=== PATIENT | female | born 1965 | race Caucasian/White ===

== ENCOUNTER 2021-08-21 12:19 | Emergency (ER) | payer OTHER ==
[~2021-08-21] VITALS: Ht 165.1 cm; Wt 98.0 kg
[~2021-08-21 12:19] MED LIST: DOCU-109 PO; FLUT16SP NS; IBUP-1060 PO; LORA10TA3 PO; OMEP20CA16 PO; OXYC1TAB15 PO
[2021-08-21 15:05] VITALS: BP 144/89
[2021-08-21] MEDS ORDERED: VANCOMYCIN PER PHARMACY MC ONE (15:15)
[2021-08-21] MEDS ORDERED: VANCOMYCIN 2 GM in IV NORMAL SALINE 500ML BAG 500 ML IV ONE (15:15)
[2021-08-21] MEDS ORDERED: PIPERACILLIN/TAZOBACTAM 4.5 GM in IV NORMAL SALINE 100ML 100 ML IV ONE (15:15)
[2021-08-21] MEDS ORDERED: MORPHINE SULFATE 4 MG/ML INJ. IV/SQ PRN (15:15)
[2021-08-21] MEDS ORDERED: NORMAL SALINE IV SCH (15:15)
--- NOTE | 2021-08-21 15:53 | RAD ---
XR FOOT_LEFT 3 VIEWS Clinical indications: Reason: stubbed toe on bed cellulitis great toe / Spl. Instructions: / History : Findings: No acute fracture or dislocation or osteolytic process is evident. Plantar spur of the brittani caneus is seen. No soft tissue air is apparent. IMPRESSION: No acute osseous abnormality is evident. Electronically signed by: Eloy Franco MD (08/21/2021 3:51 PM) [id number]
[2021-08-21 16:04] LABS: BASO % 1 % (0-3); EOS # 0.2 x10^3/uL (0.0-0.7); EOS % 4 % (0-3); HEMATOCRIT 37.4 % (36.0-47.0); HEMOGLOBIN 12.6 g/dL (12.0-15.5); LYMPH # 1.8 x10^3/uL (1.0-4.8); LYMPH % 31 % (24-48); MEAN CORPUSCULAR HEMOGLOBIN 29 pg (25-35); MEAN CORPUSCULAR HGB CONC 34 g/dL (31-37); MEAN CORPUSCULAR VOLUME 86 fL (79-100); MONO # 0.5 x10^3/uL (0.0-1.1); MONO % 9 % (0-9); NEUT # 3.1 x10^3/uL (1.8-7.7); NEUT % 56 % (31-73); PLATELET COUNT 266 x10^3/uL (140-400); RED BLOOD COUNT 4.34 x10^6/uL (3.50-5.40); RED CELL DISTRIBUTION WIDTH 15.3 % (11.5-14.5); WHITE BLOOD COUNT 5.7 x10^3/uL (4.0-11.0)
[2021-08-21 16:24] LABS: CALCIUM 9.1 mg/dL (8.5-10.1); CREATININE 0.7 mg/dL (0.6-1.0); GFR 86.9; POTASSIUM 3.9 mmol/L (3.5-5.1)
[2021-08-21 16:37] LABS: ALBUMIN 3.4 g/dL (3.4-5.0); ALBUMIN/GLOBULIN RATIO 0.9 (1.0-1.7); C-REACTIVE PROTEIN 3.4 mg/L (0-3.3); TOTAL BILIRUBIN 0.4 mg/dL (0.2-1.0)
--- NOTE | 2021-08-21 17:27 | PHYS DOC ---
Past Medical History Past Surgical History: No Surgical History Smoking Status: Former Smoker Alcohol Use: Rarely General Adult EDM: Chief Complaint: TOE PROBLEM HPI: HPI: Patient is a 56 year old female with no significant medical history who presents to the ED today complaining of left great toe redness and swelling, symptoms began 1-1/2 months ago after she stubbed her left great toe on the side of the bed. Patient is also complaining of moderate pain to the toe worse on touching the toe. States she has been trying home remedies with no relief. Denies any fever. Denies any history of PVD or diabetes. Review of Systems: Review of Systems: Constitutional: Denies fever or chills. [] Musculoskeletal: Denies back pain or joint pain. [] Integument: Reports left great toe pain, swelling, redness Neurologic: Denies headache, focal weakness or sensory changes. [] Psychiatric: Denies depression or anxiety. [] Heart Score: C/O Chest Pain: N/A Risk Factors: Risk Factors: DM, Current or recent (<one month) smoker, HTN, HLP, family hi story of CAD, obesity. Risk Scores: Score 0 - 3: 2.5% MACE over next 6 weeks - Discharge Home Score 4 - 6: 20.3% MACE over next 6 weeks - Admit for Clinical Observation Score 7 - 10: 72.7% MACE over next 6 weeks - Early Invasive Strategies Current Medications: Current Medications Medications (Trade) Dose Ordered Sig/Martha Start Time Stop Time Status Last Admin Dose Admin Morphine Sulfate (Morphine Sulfate) 4 mg PRN Q15MIN PRN 08/21/21 15:15 08/22/21 15:14 Piperacillin Sod/ Tazobactam Sod 4.5 gm/Sodium Chloride 100 ml @ 200 mls/hr 1X ONCE 08/21/21 15:15 08/21/21 15:44 DC Sodium Chloride 1,710 ml @ 1,710 mls/hr Q1H 08/21/21 15:15 08/21/21 16:19 1,710 MLS/HR Vancomycin HCl (Vanco Per Pharmacy) 1 each 1X ONCE 08/21/21 15:15 08/21/21 15:11 DC Vancomycin HCl 2 gm/Sodium Chloride 500 ml @ 250 mls/hr 1X ONCE 08/21/21 15:15 08/21/21 17:14 DC 08/21/21 16:22 250 MLS/HR Allergies: Allergies: Allergies Coded Allergies Type Severity Reaction Last Updated Verified Penicillins Allergy Intermediate Rash 08/21/21 Yes Physical Exam: PE: Constitutional: Well developed, well nourished, no acute distress, non-toxic appearance. [] Skin: Left great toe with mild swelling around the nailbed. The left great toenail has a fungal infection. There is mild cellulitis around the left great toe. The left great toe skin is peeling but not bleeding. The nailbed had slight blood but no pus. There is tenderness diffusely on the left great toe. Range of motion is intact to the left great toe. +2 left pedal pulse. Back: No tenderness, no CVA tenderness. [] Extremities: No tenderness, no cyanosis, no clubbing, ROM intact, no edema. [] Neurologic: Alert and oriented X 3, normal motor function, normal sensory function, no focal deficits noted. [] Psychologic: Affect normal, judgement normal, mood normal. [] Current Patient Data: Labs: Laboratory Tests Test 08/21/21 15:40 White Blood Count 5.7 x10^3/uL (4.0-11.0) Red Blood Count 4.34 x10^6/uL (3.50-5.40) Hemoglobin 12.6 g/dL (12.0-15.5) Hematocrit 37.4 % (36.0-47.0) Mean Corpuscular Volume 86 fL (79-100) Mean Corpuscular Hemoglobin 29 pg (25-35) Mean Corpuscular Hemoglobin Concent 34 g/dL (31-37) Red Cell Distribution Width 15.3 % (11.5-14.5) H Platelet Count 266 x10^3/uL (140-400) Neutrophils (%) (Auto) 56 % (31-73) Lymphocytes (%) (Auto) 31 % (24-48) Monocytes (%) (Auto) 9 % (0-9) Eosinophils (%) (Auto) 4 % (0-3) H Basophils (%) (Auto) 1 % (0-3) Neutrophils # (Auto) 3.1 x10^3/uL (1.8-7.7) Lymphocytes # (Auto) 1.8 x10^3/uL (1.0-4.8) Monocytes # (Auto) 0.5 x10^3/uL (0.0-1.1) Eosinophils # (Auto) 0.2 x10^3/uL (0.0-0.7) Basophils # (Auto) 0.0 x10^3/uL (0.0-0.2) Erythrocyte Sedimentation Rate 12 (0-25) Sodium Level 143 mmol/L (136-145) Potassium Level 3.9 mmol/L (3.5-5.1) Chloride Level 106 mmol/L (98-107) Carbon Dioxide Level 31 mmol/L (21-32) Anion Gap 6 (6-14) Blood Urea Nitrogen 16 mg/dL (7-20) Creatinine 0.7 mg/dL (0.6-1.0) Estimated GFR (Cockcroft-Gault) 86.9 BUN/Creatinine Ratio 23 (6-20) H Glucose Level 97 mg/dL (70-99) Lactic Acid Level 0.8 mmol/L (0.4-2.0) Calcium Level 9.1 mg/dL (8.5-10.1) Total Bilirubin 0.4 mg/dL (0.2-1.0) Aspartate Amino Transferase (AST) 17 U/L (15-37) Alanine Aminotransferase (ALT) 21 U/L (14-59) Alkaline Phosphatase 66 U/L (46-116) C-Reactive Protein, Quantitative 3.4 mg/L (0-3.3) H Total Protein 7.0 g/dL (6.4-8.2) Albumin 3.4 g/dL (3.4-5.0) Albumin/Globulin Ratio 0.9 (1.0-1.7) L Procalcitonin < 0.10 ng/mL (0.00-0.10) Laboratory Tests 08/21/21 15:40 Laboratory Tests 08/21/21 15:40 Vital Signs: Vital Signs Date Time Temp Pulse Resp B/P (MAP) Pulse Ox O2 Delivery O2 Flow Rate FiO2 08/21/21 15:05 98.1 74 20 144/89 (107) 98 Room Air 98.1 EKG: EKG: [] Radiology/Procedures: Radiology/Procedures: []PROCEDURE: FOOT LEFT 3V XR FOOT_LEFT 3 VIEWS Clinical indications: Reason: stubbed toe on bed cellulitis great toe / Spl. Instructions: / History: Findings: No acute fracture or dislocation or osteolytic process is evident. Plantar spur of the calcaneus is seen. No soft tissue air is apparent. IMPRESSION: No acute osseous abnormality is evident. Electronically signed by: Eloy Franco MD (08/21/2021 3:51 PM) [id number] DICTATED and SIGNED BY: ELOY FRANCO MD DATE: 08/21/21 [id number] 0 Course & Med Decision Making: Course & Med Decision Making Pertinent Labs and Imaging studies reviewed. (See chart for details) This a 56-year-old female patient presented to the ED today with cellulitis and onychomycosis on the left great toe. The cellulitis began after patient stubbed her left great toe on the bed. Left foot x-rays interpreted by radiologist are negative for any acute findings. CBC with a normal WBC, lactic is normal, CMP with no acute findings, sed rate is 12, CRP 3.4. Patient was given tetanus, given vancomycin, she is allergic to PCN. Discharged on clindamycin and provided web application dev specialist to follow-up. Anna Disclaimer: Anna Disclaimer: This electronic medical record was generated, in whole or in part, using a voice recognition dictation system. Departure Departure Impression: Primary Impression: Cellulitis of toe of left foot Additional Impression: Onychomycosis of left great toe Disposition: 01 HOME / SELF CARE / HOMELESS Condition: STABLE Referrals: LESA REYES PA-C (PCP) [facility] D[facility] Please call his office tomorrow and set up a follow-up appointment Patient Instructions: Cellulitis Additional Instructions: You were evaluated in the emergency room and noted to have cellulitis of the left great toe as well as fungal infection. Please contact the provided web application dev specialist and set up a follow-up appointment as soon as possible. Please complete the prescribed antibiotics. Scripts Hydrocodone Bit/Acetaminophen (HYDROCODONE-APAP 5-325 ) 1 Tab Tablet 1 TAB PO PRN Q6HRS PRN for PAIN, #14 TAB 0 Refills Prov: ALBERT LOPEZ LAMINATION MACHINE OPERATOR 08/21/21 Clindamycin Hcl (CLINDAMYCIN HCL) 150 Mg Capsule 3 CAP PO TID, #90 CAP Prov: ALBERT LOPEZ LAMINATION MACHINE OPERATOR 08/21/21 MUTALBERT MARTINEZ APRN Aug 21, 2021 17:27
[2021-08-21] MEDS ORDERED: CLIN150C16 PO (17:31)
[2021-08-21] MEDS ORDERED: HYDR-2761 PO (17:31)
== END 2021-08-21 22:30 | disposition home or self-care (01) ==
LOC: ER 12:19
DX: L03.116 Cellulitis of left lower limb (principal); B35.1 Tinea unguium; Z87.891 Personal history of nicotine dependence; Z88.0 Allergy status to penicillin
CPT/HCPCS: 36415; 73630; 80053; 83605; 84145; 85025; 85651; 86140; 87040; 96365; 96366; 99284; J3370; J7030; J7040